=== PATIENT | female | born 1940 | race Caucasian/White ===

== ENCOUNTER 2017-07-21 15:43 | Observation (INO) ==
[2017-07-21] MEDS ORDERED: Aspirin 81 MG TAB.CHEW PO ONE (15:59)
--- NOTE | 2017-07-21 16:02 | Emergency Department Note ---
Disposition Clinical Impression: Pneumonia Qualifiers: Pneumonia type: due to unspecified organism Laterality: bilateral Lung location : unspecified part of lung Qualified Code(s): J18.9 - Pneumonia, unspecified organism Disposition: Admitted As Inpatient Condition: Fair Referrals: Collin Flynn MD [Primary Care Provider] - Forms: ED Satisfaction Letter Time of Disposition: 18:40 General Adult HPI - General Chief complaint: ED Weakness Stated complaint: Weakness Time Seen by Provider: 07/21/17 15:52 Source: patient Mode of arrival: ambulatory Limitations: no limitations Nursing Notes Reviewed: Yes Vital Signs Reviewed: Yes - History of Present Illness HPI Narrative: 77-year-old who had an episode of chest pain lasting about an hour 2 weeks ago. For the 3 days following that episode she was very weak. She she improved but then 2-3 days ago she started feeling weak and not feeling well again. Has had some intermittent chest pain Pt Subjective Complaint: General weakness and chest pain Pain Scale: 0 - Related Data Home Medications Medication Instructions Recorded Confirmed Albuterol Sulfate [Proair Hfa] 2 puff IH Q4H PRN 05/03/17 05/03/17 Aspirin [Lo-Dose Aspirin EC] 81 mg PO DAILY 05/03/17 05/03/17 Atorvastatin [Lipitor] 10 mg PO HS 05/03/17 05/03/17 Clomipramine HCl 100 mg PO HS 05/03/17 05/03/17 Glimepiride [Amaryl] 4 mg PO QAM 05/03/17 05/03/17 Metformin HCl [Glucophage] 1,000 mg PO BID 05/03/17 05/03/17 Metoprolol XL (24 HR) Succ [Toprol 50 mg PO DAILY 05/03/17 05/03/17 Xl] clonazePAM [Klonopin] 1 mg PO BID PRN 05/03/17 05/03/17 Previous Rx's Medication Instructions Recorded Phenazopyridine [Pyridium] 100 mg PO TID #6 tablet 05/03/17 Allergies Allergy/AdvReac Type Severity Reaction Status Date / Time Penicillins Allergy Hives Verified 12/12/16 15:44 All systems ED: reviewed and negative except as stated. Constitutional: Denies: fever, chills, weakness, weight change Eyes: Denies: eye pain, eye discharge, vision change ENT ED: Denies: ear pain, throat pain, dental pain, hearing loss, epistaxis, congestion, dysphagia Cardiovascular: Reports: chest pain. Denies: palpitations, dyspnea on exertion , edema, syncope Respiratory: Denies: cough, dyspnea, wheezes, hemoptysis, stridor Gastrointestinal: Reports: abdominal pain. Denies: nausea, vomiting, diarrhea, constipation, hematemesis, melena, hematochezia Genitourinary: Denies: dysuria, frequency, hematuria, discharge Musculoskeletal: Denies: back pain, neck pain, arthralgia, myalgia Integumentary: Denies: rash, abrasion, lesions Neurological: Denies: headache, weakness, numbness, paresthesias, confusion, abnormal gait, vertigo Psychiatric: Denies: anxiety, depression, suicidal thoughts, homicidal thoughts , auditory hallucinations, visual hallucinations Endocrine: Denies: fatigue Hematological/Lymphatic: Denies: easy bleeding, easy bruising Allergic/Immunologic: Denies: facial swelling, urticaria Past Medical History - Past Medical History Medical history: Reports: asthma, coronary artery disease, diabetes, hyperlipidemia, hypertension Surgical history: Reports: appendectomy, breast surgery, cholecystectomy Psychiatric history: Reports: anxiety 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 - Social History Smoking Status: Never smoker Smokeless Tobacco Status: No Alcohol use: Reports: none Drug use: Reports: none Physical Exam - General Limitations: no limitations General appearance: alert, in no apparent distress - Head Head exam: atraumatic, normocephalic, normal inspection - Eye Eye exam: Present: normal appearance, PERRL, EOMI - ENT ENT exam: normal exam, normal oropharynx, mucous membranes moist - Neck Neck exam: Present: normal inspection, full ROM, trachea midline - Chest Chest inspection: Present: normal inspection, symmetric chest wall rise - Cardiovascular Cardiovascular exam: Present: regular rate, normal rhythm, normal heart sounds - Abdominal Exam Abdominal exam: Present: soft, Non-Tender. Absent: tenderness, distention, guarding, rebound, rigidity - Extremities Exam Extremities exam: Present: normal inspection, full ROM. Absent: tenderness, pedal edema - Expanded Lower Extremity Exam Neurovascular/Tendon exam: Absent: motor deficit, sensory deficit, tendon deficit Gait: observed and normal - Back Exam Back exam: Present: normal inspection, full ROM. Absent: tenderness - Neurological Exam Neurological exam: Present: alert, oriented X3 - Psychiatric Psychiatric exam: Present: normal affect, normal mood - Skin Skin exam: Present: warm, dry, intact, normal color Course - Reevaluation(s) Reevaluation #1: 77-year-old comes in with cough not feeling well for the last couple of days hurting in her chest. Workup included a negative d-dimer negative troponin EKG showed no acute changes chest x-ray shows a right upper lobe left lower lobe pneumonia. Patient was given IV Levaquin will be admitted. Time: 18:39 - Consultations Consultation #1: Discussed with Dr. Aiden harris. Time: 18:40 Vital Signs Temperature 97.5 F L 07/21/17 15:44 Pulse Rate 88 07/21/17 15:44 Respiratory Rate 16 07/21/17 15:44 Blood Pressure 119/59 07/21/17 15:44 O2 Sat by Pulse Oximetry 96 07/21/17 15:44 Temperature 97.5 F L 07/21/17 15:44 Pulse Rate 92 07/21/17 17:52 Respiratory Rate 18 07/21/17 17:52 Blood Pressure 145/71 07/21/17 17:52 O2 Sat by Pulse Oximetry 93 07/21/17 17:52 Oxygen Delivery Oxygen Delivery Room Air Medical Decision Making - Lab Data Lab results reviewed: Yes I reviewed the patient's lab results. Result diagrams: 07/21/17 16:20 07/21/17 16:20 Lab Results 07/21/17 07/21/17 07/21/17 Range/Units 16:20 16:20 16:20 WBC 10.3 (4.3-11.1) K/mcL RBC 4.63 (3.82-4.97) M/mcL Hgb 12.7 (11.5-15.4) g/dL Hct 40.1 (35.3-44.9) % MCV 86.6 (83.0-100.0) fL MCH 27.4 L (28.0-33.3) pg MCHC 31.7 (31.6-35.5) g/dL RDW 13.8 (11.5-14.5) % Plt Count 339 (140-400) K/mcL MPV 8.8 L (9.4-12.4) fL Immature Gran % 0.4 (0-4) % Seg Neutrophils % 79.3 % Lymphocytes % 14.2 % Monocytes % 5.6 % Eosinophils % 0.2 % Basophils % 0.3 % Neutrophils # 8.1 (1.6-8.9) K/mcL Lymphocytes # 1.5 (0.6-4.6) K/mcL Monocytes # 0.6 (0.0-1.3) K/mcL Eosinophils # 0.0 (0.0-0.6) K/mcL Basophils # 0.0 (0.0-0.2) K/mcL PT 11.5 (9.4-12.1) Seconds INR 1.1 APTT 32.7 (26.0-36.0) Seconds D-Dimer 298 (0-500) ng/mLFEU Sodium 138 (136-145) mEq/L Potassium 4.8 H (3.5-4.5) mEq/L Chloride 104 (98-109) mEq/L Carbon Dioxide 23 (19-29) mEq/L BUN 17 (7-20) mg/dL Creatinine 0.76 (0.57-1.11) mg/dL Est GFR ( Amer) > 60 (> 60) Est GFR (Non-Af Amer) > 60 (> 60) BUN/Creatinine Ratio 22 (6-26) Glucose 142 H (70-99) mg/dL Calculated Osmolality 290 (280-300) Calcium 9.0 (8.6-10.8) mg/dL Troponin I (0-0.03) ng/mL Urine Color (Yellow) Urine Clarity (Clear) Urine pH (5.0-8.0) pH Units Ur Specific [place] (1.010-1.025) Urine Protein (Neg-Trace) mg/dL Urine Glucose (UA) (Normal) mg/dL Urine Ketones (Negative) mg/dL Urine Blood (Negative) Urine Nitrite (Negative) Urine Bilirubin (Negative) Urine Urobilinogen (Normal) mg/dL Ur Leukocyte Esterase (Negative) Ur Culture Indicated? (NO) 07/21/17 07/21/17 Range/Units 16:20 17:57 WBC (4.3-11.1) K/mcL RBC (3.82-4.97) M/mcL Hgb (11.5-15.4) g/dL Hct (35.3-44.9) % MCV (83.0-100.0) fL MCH (28.0-33.3) pg MCHC (31.6-35.5) g/dL RDW (11.5-14.5) % Plt Count (140-400) K/mcL MPV (9.4-12.4) fL Immature Gran % (0-4) % Seg Neutrophils % % Lymphocytes % % Monocytes % % Eosinophils % % Basophils % % Neutrophils # (1.6-8.9) K/mcL Lymphocytes # (0.6-4.6) K/mcL Monocytes # (0.0-1.3) K/mcL Eosinophils # (0.0-0.6) K/mcL Basophils # (0.0-0.2) K/mcL PT (9.4-12.1) Seconds INR APTT (26.0-36.0) Seconds D-Dimer (0-500) ng/mLFEU Sodium (136-145) mEq/L Potassium (3.5-4.5) mEq/L Chloride (98-109) mEq/L Carbon Dioxide (19-29) mEq/L BUN (7-20) mg/dL Creatinine (0.57-1.11) mg/dL Est GFR ( Amer) (> 60) Est GFR (Non-Af Amer) (> 60) BUN/Creatinine Ratio (6-26) Glucose (70-99) mg/dL Calculated Osmolality (280-300) Calcium (8.6-10.8) mg/dL Troponin I 0.00 (0-0.03) ng/mL Urine Color Yellow (Yellow) Urine Clarity Clear (Clear) Urine pH 5.5 (5.0-8.0) pH Units Ur Specific [place] 1.029 H (1.010-1.025) Urine Protein Negative (Neg-Trace) mg/dL Urine Glucose (UA) Normal (Normal) mg/dL Urine Ketones Trace H (Negative) mg/dL Urine Blood Negative (Negative) Urine Nitrite Negative (Negative) Urine Bilirubin Negative (Negative) Urine Urobilinogen Normal (Normal) mg/dL Ur Leukocyte Esterase Negative (Negative) Ur Culture Indicated? NO (NO) - Radiology Data Radiology results reviewed: Yes I reviewed the patient's radiology results. Chest X-Ray 07/21/17 15:59 IMPRESSION: 1. Right upper and left lower lobe opacities are suspicious for pneumonia. D/ / 07/21/2017 16:58:16 Isai Diaz MD / jayson Interpreting Provider: Isai Diaz MD - EKG Data EKG #1 EKG attestation: Yes I reviewed and interpreted this EKG. EKG shows normal: sinus rhythm Rate: normal Rhythm: NSR [place]/QRS: RBBB When compared to previous EKG there are: no significant changes (05/11/2016) Interpretation: no acute changes
[2017-07-21 16:31] LABS: Basophils % 0.3 %; Eosinophils % 0.2 %; Hematocrit 40.1 % (35.3-44.9); Hemoglobin 12.7 g/dL (11.5-15.4); Immature Granulocytes % 0.4 % (0-4); Lymphocytes # 1.5 K/mcL (0.6-4.6); Lymphocytes % 14.2 %; Mean Corpuscular HGB Conc 31.7 g/dL (31.6-35.5); Mean Corpuscular Hemoglobin 27.4 pg (28.0-33.3); Mean Corpuscular Volume 86.6 fL (83.0-100.0); Mean Platelet Volume 8.8 fL (9.4-12.4); Monocytes # 0.6 K/mcL (0.0-1.3); Monocytes % 5.6 %; Neutrophils # 8.1 K/mcL (1.6-8.9); Platelet Count 339 K/mcL (140-400); Red Blood Count 4.63 M/mcL (3.82-4.97); Red Cell Distribution Width 13.8 % (11.5-14.5); Segmented Neutrophils % 79.3 %
[2017-07-21 16:38] LABS: INR 1.1; Prothrombin Time 11.5 Seconds (9.4-12.1)
[2017-07-21 16:41] LABS: Activated Partial Thrombo Time 32.7 Seconds (26.0-36.0)
[2017-07-21 16:43] LABS: BUN/Creatinine Ratio 22 (6-26); Blood Urea Nitrogen 17 mg/dL (7-20); Carbon Dioxide 23 mEq/L (19-29); Chloride 104 mEq/L (98-109); Glucose 142 mg/dL (70-99); Osmolality,Calculated 290 (280-300); Potassium 4.8 mEq/L (3.5-4.5); Sodium 138 mEq/L (136-145); eGFR For African Americans > 60 (> 60); eGFR For Non-African Americans > 60 (> 60)
[2017-07-21 18:14] LABS: Bilirubin,Urine Negative (Negative); Blood,Urine Negative (Negative); Clarity,Urine Clear (Clear); Color,Urine Yellow (Yellow); Glucose,Urine (UA) Normal (Normal); Ketones,Urine Trace mg/dL (Negative); Leukocyte Esterase,Urine Negative (Negative); Nitrite,Urine Negative (Negative); PH,Urine 5.5 pH Units (5.0-8.0); Protein,Urine Negative (Neg-Trace); Specific Gravity,Urine 1.029 (1.010-1.025); Urobilinogen,Urine Normal (Normal)
[2017-07-21] MEDS ORDERED: Levofloxacin 750 MG/150 ML 750 MG/150 ML BAG IVPB ONE (18:20)
[2017-07-21] MEDS ORDERED: Naloxone 0.4 MG/ML INJ IVP PRN (20:12)
[2017-07-21] MEDS ORDERED: D5% in Water 1,000 ML IVC PRN (20:12)
[2017-07-21] MEDS ORDERED: Dextrose Gel 15 GM PO PRN ×2 (20:12)
[2017-07-21] MEDS ORDERED: *HR* Dextrose 50 % in Water (Syg) 50 ML SYRINGE IVP PRN (20:12)
[2017-07-21] MEDS ORDERED: *HR* Morphine 2 MG/ML SYRINGE IVP PRN (20:51)
[2017-07-21] MEDS ORDERED: Acetaminophen 325 MG TABLET PO PRN (20:51)
--- NOTE | 2017-07-21 21:28 | Internal Med History&Physical ---
Date of Encounter: 07/21/17 Time of Encounter: 20:00 Assessment and Plan (1) Pneumonia Current visit: Yes Status: Acute 1. Blood cultures drawn. 2. Continue Levaquin IV and convert to oral regimen soon. 3. Clinically stable with no oxygen requirement, normal perfusion, and no evidence of sepsis. 4. Supportive measures as needed. Qualifiers: Pneumonia type: due to unspecified organism Laterality: right Lung location: unspecified part of lung Qualified Code(s): J18.9 - Pneumonia, unspecified organism (2) Chest pain Current visit: Yes Status: Resolved 1. Patient gives history of CAD but she has never had work-up or been hospitalized for it. 2. Will cycle troponins and order ECHO. 3. Likely outpatient stress test or invasive work-up once pneumonia resolves. 4. Continue aspirin and STATIN. 5. Currently chest pain free. Qualifiers: Chest pain type: precordial pain Qualified Code(s): R07.2 - Precordial pain (3) Lactic acidosis Current visit: Yes Status: Acute 1. Likely due to Metformin in the setting of pneumonia. 2. Will repeat Lactate level with AM labs. 3. Will hydrate with IVF and hold Metformin. (4) Type 2 diabetes mellitus Current visit: Yes Status: Chronic 1. Hold oral meds. 2. Will use SSI for now and adjust as needed. 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 Heparin SQ. Internal Medicine - H&P: HPI Chief complaint: inder pain Admitted From: Emergency Dept Plans for Post Hospital Care: Home History of present illness: Ms. Plascencia is a 77 year old female who presents with a 2 week history of left- sided chest pain. Chest pain eventually resolved within 24-48 hours. However, since then, she has had fatigue, weakness, decreased appetite, and little motivation to care for herself or her . She therefore came to the ER. Workup in the ER was negative, but she was found to have evidence of right upper lobe pneumonia. She had no fever, leukocytosis, tachycardia, or hypoxemia. Nonetheless, she was admitted to the hospitalist service for further workup and care. Of note, ER did check a lactate level,which was slightly elevated. I suspect this is due to her metformin as she has no clinical evidence of sepsis. Presently, she has no chest pain. She has no shortness of breath. She feels "fine". She does admit to having had a dry cough for the last several days. She denies any pleurisy, productive sputum, change in color of sputum, or any shortness of breath. Past Med Surg Social Fam HX - Past Medical History Attestation: Yes The following information was validated with the patient. Source: patient, old records reviewed Medical history: asthma, coronary artery disease (she never sought medical attention for chest pain before-- she suspects she has had DC in past but she never went to hospital), diabetes, hyperlipidemia, hypertension Psychiatric history: anxiety - Past Surgical History Surgical History: appendectomy, breast surgery, cholecystectomy - Social History Smoking Status: Never smoker Smokeless Tobacco Status: No Alcohol use: none Drug use: none Current living situation: Home, With Family Activity Level: Independent ambulation Recent Out of Country Travel Within the Last 8 Weeks: No - Family History Father Living Status: Hx Family Cardiac Disorders: Yes Internal Medicine - H&P: Meds Albuterol Sulfate [Proair Hfa] 2 puff IH Q4H PRN 05/03/17 [History] Aspirin [Lo-Dose Aspirin EC] 81 mg PO DAILY 05/03/17 [History] Atorvastatin [Lipitor] 10 mg PO HS 05/03/17 [History] Clomipramine HCl 50 mg PO HS 05/03/17 [History] Glimepiride [Amaryl] 4 mg PO QAM 05/03/17 [History] Metformin HCl [Glucophage] 1,000 mg PO BID 05/03/17 [History] Metoprolol XL (24 HR) Succ [Toprol Xl] 50 mg PO DAILY 05/03/17 [History] clonazePAM [Klonopin] 1 mg PO BID PRN 05/03/17 [History] 3 Allergy/AdvReac Type Severity Reaction Status Date / Time Penicillins Allergy Hives Verified 12/12/16 15:44 - Constitutional Constitutional: fatigue, malaise, no chills, no fever(s), no night sweats - EENT Eyes: no blurry vision, no change in vision Ears: no ear pain, no tinnitus Nose, mouth and throat: no nasal congestion, no sinus pressure, no sore throat - Cardiovascular Cardiovascular ROS IM: chest pain (2 weeks ago), no dyspnea, no dyspnea on exertion, no edema, no lightheadedness, no orthopnea, no palpitations, no paroxysmal nocturnal dyspnea, no syncope - Respiratory Respiratory: cough (dry), no dyspnea, no hemoptysis, no dyspnea on exertion, no wheezing, no pain on inspiration, no chest congestion, no excessive phlegm production, no change in phlegm color, no pain with cough - Gastrointestinal Gastrointestinal: no abdominal pain, no diarrhea, no hematemesis, no hematochezia, no melena, no nausea, no vomiting - Genitourinary Genitourinary: no dysuria, no flank pain, no hematuria - Musculoskeletal Musculoskeletal ROS IM: no arthralgias, no back pain - Integumentary Integumentary IM: no rash, no jaundice - Neurological Neurological ROS: no dizziness, no focal weakness, no frequent falls, no headache(s) - Psychiatric Psychiatric: no anxiety, no depression - Endocrine Endocrine IM: no polydipsia, no polyuria - Hematologic/Lymphatic Hematologic/Lymphatic: no easy bruising, no lymphadenopathy - Allergic/Immunologic Allergic/Immunologic: no wheezing, no GI upset with certain foods - Constitutional Vitals: Temp Pulse Resp BP Pulse Ox 98.3 F 92 16 152/81 93 07/21/17 19:34 07/21/17 19:34 07/21/17 19:34 07/21/17 19:34 07/21/17 19:34 General appearance: Present: cooperative, A&O X 3, pleasant, no acute distress, answers questions appropriately - Head Head exam: Present: atraumatic, normal inspection - Eye Eye exam: Present: EOMI, normal appearance, PERRL. Absent: scleral icterus Pupils: Present: normal accommodation - ENT ENT exam: Present: mucous membranes moist, normal exam - Neck Neck exam general surgery: Present: full ROM, supple. Absent: lymphadenopathy, tenderness - Respiratory Respiratory exam: Present: CTAB (no appreciable crackles noted on exam). Absent : chest wall tenderness, rales, respiratory distress, rhonchi, wheezes, tachypnea - Cardiovascular Cardiovascular exam: Present: RRR, +S1, +S2. Absent: diastolic murmur, systolic murmur - GI/Abdominal GI/Abdominal exam: Present: normal bowel sounds, soft. Absent: guarding, hepatomegaly, mass, rebound, splenomegaly, tenderness - Extremities Exam Extremities exam: Present: full ROM, warm, radial pulses palpable and symmetrical. Absent: calf tenderness, joint swelling, pedal edema - Back Exam Back exam: Absent: CVA tenderness (L), CVA tenderness (R) - Neurological Exam Neurological exam: Present: alert, CN II-XII intact, oriented X3, no focal deficits, strengths equal and symetr throughout - Psychiatric Psychiatric exam: Present: normal affect, normal mood - Skin Skin exam: Present: dry, warm. Absent: rash Internal Med - H&P Results - Labs CBC & Chem 7: 07/21/17 16:20 07/21/17 16:20 - EKG Data -: EKG Interpreted by Myself - EKG Data Prior EKG available for review: yes When compared to previous EKG: there is no significant change EKG comments: 07/21/17 21:54 NSR; RBBB; no acute changes - Diagnostic Studies Chest x-ray Status: image reviewed by me (RUL infiltrate)
[2017-07-21 22:18] LABS: Hemoglobin A1C 5.4 %
[2017-07-21] MEDS: clonazePAM 1 MG TABLET PO PRN (22:30)
[2017-07-21] MEDS: 0.9 % Sodium Chloride 1,000 ML IVC SCH (22:30)
[2017-07-21] MEDS: *HR* Heparin 5,000 UNIT/ML VIAL SQ SCH (22:31)
[2017-07-22 05:20] LABS: Basophils % 0.3 %; Eosinophils % 0.3 %; Hematocrit 39.6 % (35.3-44.9); Hemoglobin 12.6 g/dL (11.5-15.4); Immature Granulocytes % 0.4 % (0-4); Lymphocytes # 2.5 K/mcL (0.6-4.6); Lymphocytes % 22.6 %; Mean Corpuscular HGB Conc 31.8 g/dL (31.6-35.5); Mean Corpuscular Hemoglobin 27.7 pg (28.0-33.3); Monocytes # 0.6 K/mcL (0.0-1.3); Monocytes % 5.5 %; Neutrophils # 7.7 K/mcL (1.6-8.9); Platelet Count 335 K/mcL (140-400); Red Blood Count 4.55 M/mcL (3.82-4.97); Red Cell Distribution Width 13.7 % (11.5-14.5); Segmented Neutrophils % 70.9 %
[2017-07-22 05:31] LABS: Alanine Aminotransferase 12 Units/L (0-55); Albumin 3.5 g/dL (3.5-5.0); Albumin/Globulin Ratio 0.9 (1.1-2.2); Alkaline Phosphatase 64 Units/L (38-126); Aspartate Amino Transferase 14 Units/L (5-34); BUN/Creatinine Ratio 19 (6-26); Bilirubin,Total 0.3 mg/dL (0.2-1.2); Blood Urea Nitrogen 14 mg/dL (7-20); Calcium 8.9 mg/dL (8.6-10.8); Carbon Dioxide 26 mEq/L (19-29); Chloride 105 mEq/L (98-109); Chol/HDL Ratio 3.4 (0-4.9); Cholesterol 131 mg/dL (< 200); Globulin 3.9 g/dL (2.4-3.5); Glucose 81 mg/dL (70-99); HDL Cholesterol 38 mg/dL (40-59); LDL Cholesterol,Calculated 50 mg/dL (0-99); Magnesium 1.5 mg/dL (1.6-2.6); Osmolality,Calculated 294 (280-300); Potassium 4.5 mEq/L (3.5-4.5); Sodium 142 mEq/L (136-145); Total Protein 7.4 g/dL (6.0-8.3); Triglycerides 213 mg/dL (< 150); eGFR For African Americans > 60 (> 60); eGFR For Non-African Americans > 60 (> 60)
[2017-07-22] MEDS: *HR* Heparin 5,000 UNIT/ML VIAL SQ SCH ×2 (05:39→20:13)
[2017-07-22] MEDS: Insulin LISPRO 300 UNITS/3 ML VIAL SQ SCH ×3 (08:11→18:25)
[2017-07-22] MEDS ORDERED: 0.9 % Sodium Chloride 1,000 ML IVC ONE (08:15)
[2017-07-22] MEDS: Aspirin Enteric Coated 81 MG Tablet PO SCH (09:00)
[2017-07-22] MEDS: Metoprolol XL (24 HR) Succ 50 MG TAB.ER.24H PO SCH (09:00)
[2017-07-22] MEDS: clonazePAM 1 MG TABLET PO PRN ×2 (09:08→22:51)
[2017-07-22] MEDS: 0.9 % Sodium Chloride 1,000 ML IVC SCH ×2 (09:08→18:28)
--- NOTE | 2017-07-22 15:15 | Internal Med Progress Note ---
Date of Encounter: 07/22/17 Time of Encounter: 15:13 - Assessment and plan (1) CAD (coronary artery disease) Current Visit: Yes Status: Acute Assessment and plan: Sandhya Plascencia is a 77-year-old female with past medical history CAD, diabetes and hypertension who presented to [facility] on 07/21/2017 with complaints of general weakness and fatigue. She was found to have pneumonia and was placed in observation status for IV ATB. 1. Community acquired pneumonia: Presented with general weakness and fatigue. CXR with bilateral upper lobe opacities concerning for pneumonia. WBC 10K, afebrile. Does not appear acute or toxic. Continue IV Levaquin started on arrival. Urinary antigens and respiratory PCR pending. De-escalate ATVs is clinically improves and/or cultures finalized 2. Elevated lactic acid: Lactic acid peaked at 2.8. In the setting of pneumonia however does not appear to be sepsis. Possibly secondary to dehydration, diabetes with metformin use. Lactic acid normalized with IV fluids. 3. CAD: per with remote [place]. Patient reports episode of severe chest pain approximately 3 weeks prior to admission. Troponin negative, EKG without acute ST changes. Patient is declining cardiac workup inpatient. States she is afraid to have stress test. She follows with Dr. Hawkins and would like to follow up outpatient. Continue home ASA, BB, statin. 4. Diabetes: per hx. Hgb A1c 5.4%. Holding home oral hypoglycemics. SSI. Monitor blood sugar and titrate PRN 5. Hypertension: per hx. BP variable but acceptable. Continue home BP medication. Monitor BP and titrate PRN 6. DVT prophylaxis: Heparin Qualifiers: Coronary Disease-Associated Artery/Lesion type: alutiiq artery [place] vs. transplanted heart: al[place]q heart Associated angina: without angina Qualified Code(s): I25.10 - Atherosclerotic heart disease of al[place]iiq coronary artery without angina pectoris (2) Pneumonia Current Visit: Yes Status: Acute Qualifiers: Pneumonia type: due to unspecified organism Laterality: right Lung location: unspecified part of lung Qualified Code(s): J18.9 - Pneumonia, unspecified organism (3) Lactic acidosis Current Visit: Yes Status: Acute (4) DVT prophylaxis Current Visit: Yes Status: Acute (5) Type 2 diabetes mellitus Current Visit: Yes Status: Chronic Qualifiers: Diabetes mellitus complication status: without complication Diabetes mellitus fpc insulin use: without fpc use Qualified Code(s): E11.9 - Type 2 diabetes mellitus without complications - Subjective Interval history: Seen and examined at bedside. Patient is new to me. Information obtained from chart review and patient report. Patient says she is feeling much better today. Has a dry nonproductive cough, no shortness of breath or chest pain. She does report an episode of acute chest pain approximately 3 weeks ago when she thought she was having a heart attack. Discussed inpatient stress testing and patient states she is fighting to have another stress test and wishes to follow up outpatient. - Constitutional Vitals: Temp Pulse Resp BP Pulse Ox 97.8 F 91 16 126/69 91 07/22/17 12:00 07/22/17 12:00 07/22/17 12:00 07/22/17 12:00 07/22/17 12:00 General appearance: Present: cooperative, A&O X 3, pleasant, no acute distress, answers questions appropriately - Head Head exam: Present: atraumatic, normocephalic - Eye Eye exam: Present: PERRL, conjuntiva pink, sclera anicteric Pupils: Present: PERRL - Neck Neck exam general surgery: Present: supple, trachea midline. Absent: lymphadenopathy - Respiratory Respiratory exam: Present: CTAB. Absent: accessory muscle use, rales, rhonchi, wheezes - Cardiovascular Cardiovascular exam: Present: RRR, +S1, +S2. Absent: diastolic murmur, gallop, rubs, systolic murmur - GI/Abdominal GI/Abdominal exam: Present: normal bowel sounds, soft, no peritoneal signs. Absent: distended, tenderness - Extremities Exam Extremities exam: Present: warm, radial pulses palpable and symmetrical. Absent : calf tenderness, cyanotic, pedal edema - Neurological Exam Neurological exam: Present: CN II-XII intact, oriented X3, no focal deficits. Absent: pronater drift, facial droop, speech deficit - Skin Skin exam: Present: dry, intact Internal Medicine: Result - Labs CBC & Chem 7: 07/22/17 04:46 07/22/17 04:46 Labs: Short CBC 07/22/17 Range/Units 04:46 WBC 10.9 (4.3-11.1) K/mcL Hgb 12.6 (11.5-15.4) g/dL Hct 39.6 (35.3-44.9) % Plt Count 335 (140-400) K/mcL Neutrophils # 7.7 (1.6-8.9) K/mcL BMP 07/22/17 04:46 Sodium 142 Potassium 4.5 Chloride 105 Carbon Dioxide 26 BUN 14 Creatinine 0.75 Glucose 81 Calcium 8.9 Cardiac Enzymes 07/21/17 07/22/17 Range/Units 21:38 04:46 Troponin I 0.00 0.00 (0-0.03) ng/mL Liver Function 07/22/17 Range/Units 04:46 Total Bilirubin 0.3 (0.2-1.2) mg/dL AST 14 (5-34) Units/L ALT 12 (0-55) Units/L Alkaline Phosphatase 64 (38-126) Units/L Albumin 3.5 (3.5-5.0) g/dL - ABG Interpretation ABG results: PT/INR, D-dimer PT 11.5 Seconds (9.4-12.1) 07/21/17 16:20 D-Dimer 298 ng/mLFEU (0-500) 07/21/17 16:20 - Impressions Impressions Echocardiogram 07/22/17 20:51 Impressions: LVEF 60%. Not all LV segments were well visualized. Indeterminate diastolic function. Normal right ventricular structure and function. Mild aortic regurgitation. No pulmonary hypertension. Left Ventricular Wall Motion: Rest Echo Findings The mid inferior lateral and basal inferior lateral francis were not visualized. All other wall segments showed normal motion. Findings: Study Quality * Technically adequate exam. ECG Findings * Sinus rhythm with BBB. Left Ventricle * Indeterminate diastolic function. * LVEF 60%. * Normal LV size and wall thickness. Right Ventricle * Normal right ventricular structure and function. Left Atrium * Normal left atrial size. Right Atrium * Normal right atrial size. Aortic Valve * Trileaflet aortic valve. * Normal aortic valve structure. * No aortic stenosis. * Mild aortic regurgitation. Mitral Valve * Normal mitral valve structure. * No mitral stenosis. * No mitral regurgitation. * Mild mitral annular calcification Tricuspid Valve * Tricuspid valve not well visualized. * No tricuspid regurgitation. * Estimated RA pressure is 3 mmHg. * No pulmonary hypertension. Pulmonic Valve * Pulmonic valve is not well visualized. * No pulmonic stenosis. * No pulmonic regurgitation. Pulmonary Artery * Pulmonary artery not well visualized. Aorta * Normally sized aortic root. Pericardium * There is no pericardial effusion present. Interatrial Septum * No evidence of PFO by color Doppler. IVC * Normal IVC dimensions and inspiratory collapse. Consult Discharge Plan - Plan Referrals: Collin Flynn MD [Primary Care Provider] - 07/29/17 3:45 pm
[2017-07-22 16:57] LABS: Adenovirus Not Detected (Not Detect); Coronavirus 229E Not Detected (Not Detect); Coronavirus HKU1 Not Detected (Not Detect); Coronavirus NL63 Not Detected (Not Detect); Coronavirus OC43 Not Detected (Not Detect); Human Metapneumovirus Not Detected (Not Detect); Human Rhinovirus/Enterovirus Not Detected (Not Detect); Influenza A Subtype 2009 H1 Not Detected (Not Detect); Influenza A Untypeable Not Detected (Not Detect); Influenza B Not Detected (Not Detect); Parainfluenza Virus 1 Not Detected (Not Detect)
[2017-07-22 16:58] LABS: Bordetella Pertussis Not Detected (Not Detect); Chlamydophila pneumoniae Not Detected (Not Detect); Mycoplasma pneumoniae Not Detected (Not Detect); Parainfluenza Virus 2 Not Detected (Not Detect); Parainfluenza Virus 3 Not Detected (Not Detect); Parainfluenza Virus 4 Not Detected (Not Detect); Respiratory Syncytial Virus Not Detected (Not Detect)
[2017-07-22] MEDS: Levofloxacin 750 MG/150 ML 750 MG/150 ML BAG IVPB SCH (18:25)
[2017-07-23 04:00] LABS: Hematocrit 36.6 % (35.3-44.9); Hemoglobin 11.9 g/dL (11.5-15.4); Mean Corpuscular HGB Conc 32.5 g/dL (31.6-35.5); Mean Corpuscular Hemoglobin 27.5 pg (28.0-33.3); Mean Corpuscular Volume 84.5 fL (83.0-100.0); Platelet Count 280 K/mcL (140-400); Red Blood Count 4.33 M/mcL (3.82-4.97); Red Cell Distribution Width 13.6 % (11.5-14.5)
[2017-07-23 04:15] LABS: Alanine Aminotransferase 9 Units/L (0-55); Albumin/Globulin Ratio 0.8 (1.1-2.2); Alkaline Phosphatase 56 Units/L (38-126); Aspartate Amino Transferase 12 Units/L (5-34); BUN/Creatinine Ratio 15 (6-26); Bilirubin,Total 0.3 mg/dL (0.2-1.2); Blood Urea Nitrogen 11 mg/dL (7-20); Calcium 8.4 mg/dL (8.6-10.8); Carbon Dioxide 23 mEq/L (19-29); Chloride 109 mEq/L (98-109); Globulin 3.6 g/dL (2.4-3.5); Glucose 90 mg/dL (70-99); Osmolality,Calculated 293 (280-300); Sodium 142 mEq/L (136-145); Total Protein 6.6 g/dL (6.0-8.3); eGFR For African Americans > 60 (> 60); eGFR For Non-African Americans > 60 (> 60)
[2017-07-23] MEDS: *HR* Heparin 5,000 UNIT/ML VIAL SQ SCH (05:13)
[2017-07-23 07:13] VITALS: BP 142/68
[2017-07-23] MEDS: Insulin LISPRO 300 UNITS/3 ML VIAL SQ SCH (08:10)
[2017-07-23] MEDS: Metoprolol XL (24 HR) Succ 50 MG TAB.ER.24H PO SCH (08:12)
[2017-07-23] MEDS: Aspirin Enteric Coated 81 MG Tablet PO SCH (08:12)
[2017-07-23] MEDS: clonazePAM 1 MG TABLET PO PRN (08:17)
[2017-07-23] MEDS: 0.9 % Sodium Chloride 1,000 ML IVC SCH (08:17)
--- NOTE | 2017-07-23 10:29 | Discharge Summary ---
Date of Encounter: 07/23/17 Time of Encounter: 10:17 - Discharge Diagnosis (1) CAD (coronary artery disease) Priority: Primary Status: Acute Comments: Sandhya Plascencia is a 77-year-old female with past medical history CAD, diabetes and hypertension who presented to [facility] on 07/21/2017 with complaints of general weakness and fatigue. She was found to have pneumonia and was placed in observation status for IV ATB. She was discharged home on 07/23/2017 in stable condition with outpatient follow-up 1. Community acquired pneumonia: Secondary to unspecified organism. Presented with general weakness and fatigue. CXR with bilateral upper lobe opacities concerning for pneumonia. WBC 10K, afebrile. Did not appear acute or toxic. Urinary antigens and respiratory PCR negative. Received 2 doses IV Levaquin, discharge home on oral Levaquin (to complete a total course of 7 days). Declined pneumonia and influenza vaccine. Recommend follow-up with PCP within 1- 2 weeks. 2. Elevated lactic acid: Lactic acid peaked at 2.8. In the setting of pneumonia however does not appear to be sepsis. Possibly secondary to dehydration, diabetes with metformin use. Lactic acid normalized with IV fluids. 3. CAD: per with remote [place]. Patient reports episode of severe chest pain approximately 3 weeks prior to presentation. Troponin negative, EKG without acute ST changes. 07/22/2017 TTE with EF 60%, mid inferior lateral and basal and paralateral was not visualized, all other wall segments with normal motion. No chest pain recurrence, patient declined inpatient cardiac workup. She follows with Dr. Hawkins and would like to follow up outpatient. Continue home ASA, BB, statin. 4. Diabetes: per hx. Hgb A1c 5.4%. Resume home diabetes regimen. Recommend follow-up with PCP within 1-2 weeks. 5. Hypertension: per hx. BP variable but acceptable. Continue home BP medication Qualifiers: Coronary Disease-Associated Artery/Lesion type: [place] artery [place] vs. transplanted heart: [place] heart Associated angina: without angina Qualified Code(s): I25.10 - Atherosclerotic heart disease of [place] coronary artery without angina pectoris (2) Pneumonia Priority: Primary Status: Acute Qualifiers: Pneumonia type: due to unspecified organism Laterality: bilateral Lung location: upper lobe of lung Qualified Code(s): J18.9 - Pneumonia, unspecified organism (3) Lactic acidosis Priority: Primary Status: Resolved (4) Type 2 diabetes mellitus Priority: Primary Status: Chronic Qualifiers: Diabetes mellitus complication status: without complication Diabetes mellitus prison insulin use: without 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 plant operator use Qualified Code(s): E11.9 - Type 2 diabetes mellitus without complications - Discharge Medications Home Medications: Albuterol Sulfate [Proair Hfa] 2 puff IH Q4H PRN 05/03/17 [History] Aspirin [Lo-Dose Aspirin EC] 81 mg PO DAILY 05/03/17 [History] Atorvastatin [Lipitor] 10 mg PO HS 05/03/17 [History] Clomipramine HCl 50 mg PO HS 05/03/17 [History] Glimepiride [Amaryl] 4 mg PO QAM 05/03/17 [History] Metformin HCl [Glucophage] 1,000 mg PO BID 05/03/17 [History] Metoprolol XL (24 HR) Succ [Toprol Xl] 50 mg PO DAILY 05/03/17 [History] clonazePAM [Klonopin] 1 mg PO BID PRN 05/03/17 [History] Allergies/Adverse Reactions: 3 Allergy/AdvReac Type Severity Reaction Status Date / Time Penicillins Allergy Hives Verified 12/12/16 15:44 Procedures/tests Complete & Pending: Procedures Performed prior 72 hours Category Date Time Status ECG 12 lead ECG [ECG] AM 0600 Y 07/22/17 06:00 Ordered EV echocardiogram Routine Y 07/22/17 20:51 Completed Date of admission: 07/21/17 18:59 Primary care physician: Collin Flynn MD Discharging clinician: Solange Cruz Anticipated date of discharge: 07/23/17 - Patient Status Disposition: Home, Self-Care Condition: Good Functional capacity at discharge: independent ambulation Overall status at discharge: patient is back to baseline - Discharge Instructions Instructions: Community-acquired Pneumonia (DC), Levofloxacin (By mouth), Pneumococcal Polysaccharide Vaccine (DC), Influenza Vaccine (GEN), Chest Pain ( DC) Follow Up With: Collin Flynn MD [Primary Care Provider] - 07/29/17 3:45 pm Additional Instructions: Follow Up Appointment 1. Please keep follow-up plan with her primary care physician 2. Please follow-up with her phlebotomist supervisor/instructor as scheduled - Diet and Activity Activity: increase activity as tolerated Diet: diabetic diet, low fat, low cholesterol Interval History: Seen and examined at bedside. Patient says she feels much better and wants to go home today. She has no complaints, specifically denies fevers, no chills no chest pain or shortness of breath. She still declining further cardiac workup. She follows with Dr. Hawkins and would like to follow-up with her outpatient. She is also refusing the pneumonia and influenza vaccine. Hospital course: See assessment and plan for hospital course - Time Spent with Patient Total time spent providing and/or coordinating discharge services: - Constitutional Vitals: Temp Pulse Resp BP Pulse Ox 97.8 F 87 16 142/68 93 07/23/17 07:06 07/23/17 07:06 07/23/17 07:06 07/23/17 07:06 07/23/17 07:06 General appearance: Present: cooperative, A&O X 3, pleasant, no acute distress, answers questions appropriately - Head Head exam: Present: atraumatic, normocephalic - Eye Eye exam: Present: PERRL, conjuntiva pink, sclera anicteric Pupils: Present: PERRL - Neck Neck exam general surgery: Present: supple, trachea midline. Absent: lymphadenopathy - Respiratory Respiratory exam: Present: CTAB. Absent: accessory muscle use, rales, rhonchi, wheezes - Cardiovascular Cardiovascular exam: Present: RRR, +S1, +S2. Absent: diastolic murmur, gallop, rubs, systolic murmur - GI/Abdominal GI/Abdominal exam: Present: normal bowel sounds, soft, no peritoneal signs. Absent: distended, tenderness - Extremities Exam Extremities exam: Present: warm, radial pulses palpable and symmetrical. Absent : calf tenderness, cyanotic, pedal edema - Neurological Exam Neurological exam: Present: CN II-XII intact, oriented X3, no focal deficits. Absent: pronater drift, facial droop, speech deficit - Skin Skin exam: Present: dry, intact
[2017-07-23] MEDS: Levofloxacin 750 MG/150 ML 750 MG/150 ML BAG IVPB SCH (10:30)
--- NOTE | 2017-07-23 11:02 | Discharge Summary ---
Date of Encounter: 07/23/17 Time of Encounter: 11:00 - Discharge Diagnosis (1) Pneumonia Priority: Primary Status: Acute Comments: Sandhya Plascencia is a 77-year-old female with past medical history CAD, diabetes and hypertension who presented to [facility] on 07/21/2017 with complaints of general weakness and fatigue. She was found to have pneumonia and was placed in observation status for IV ATB. She was discharged home on 07/23/2017 in stable condition with outpatient follow-up 1. Community acquired pneumonia: Secondary to unspecified organism. Presented with general weakness and fatigue. CXR with bilateral upper lobe opacities concerning for pneumonia. WBC 10K, afebrile. Did not appear acute or toxic. Urinary antigens and respiratory PCR negative. Received 2 doses IV Levaquin, discharge home on oral Levaquin (to complete a total course of 7 days). Declined pneumonia and influenza vaccine. Recommend follow-up with PCP within 1- 2 weeks. 2. Elevated lactic acid: Lactic acid peaked at 2.8. In the setting of pneumonia however does not appear to be sepsis. Possibly secondary to dehydration, diabetes with metformin use. Lactic acid normalized with IV fluids. 3. CAD: per with remote [place]. Patient reports episode of severe chest pain approximately 3 weeks prior to presentation. Troponin negative, EKG without acute ST changes. 07/22/2017 TTE with EF 60%, mid inferior lateral and basal and paralateral was not visualized, all other wall segments with normal motion. No chest pain recurrence, patient declined inpatient cardiac workup. She follows with Dr. Hawkins and would like to follow up outpatient. Continue home ASA, BB, statin. 4. Diabetes: per hx. Hgb A1c 5.4%. Resume home diabetes regimen. Recommend follow-up with PCP within 1-2 weeks. 5. Hypertension: per hx. BP variable but acceptable. Continue home BP medication Qualifiers: Pneumonia type: due to unspecified organism Laterality: bilateral Lung location: upper lobe of lung Qualified Code(s): J18.9 - Pneumonia, unspecified organism (2) CAD (coronary artery disease) Priority: Primary Status: Acute Qualifiers: Coronary Disease-Associated Artery/Lesion type: [place] artery [place] vs. transplanted heart: [place] heart Associated angina: without angina Qualified Code(s): I25.10 - Atherosclerotic heart disease of [place] coronary artery without angina pectoris (3) Lactic acidosis Priority: Primary Status: Resolved (4) Type 2 diabetes mellitus Priority: Primary Status: Chronic Qualifiers: Diabetes mellitus complication status: without complication Diabetes mellitus penitentiary insulin use: without ad terminal makeup operator use Qualified Code(s): E11.9 - Type 2 diabetes mellitus without complications - Discharge Medications Prescriptions: levoFLOXacin [Levaquin] 750 mg PO ONCE #5 tablet Home Medications: Albuterol Sulfate [Proair Hfa] 2 puff IH Q4H PRN 05/03/17 [History] Aspirin [Lo-Dose Aspirin EC] 81 mg PO DAILY 05/03/17 [History] Atorvastatin [Lipitor] 10 mg PO HS 05/03/17 [History] Clomipramine HCl 50 mg PO HS 05/03/17 [History] Glimepiride [Amaryl] 4 mg PO QAM 05/03/17 [History] Metformin HCl [Glucophage] 1,000 mg PO BID 05/03/17 [History] Metoprolol XL (24 HR) Succ [Toprol Xl] 50 mg PO DAILY 05/03/17 [History] clonazePAM [Klonopin] 1 mg PO BID PRN 05/03/17 [History] levoFLOXacin [Levaquin] 750 mg PO ONCE #5 tablet 07/23/17 [Rx] Allergies/Adverse Reactions: 3 Allergy/AdvReac Type Severity Reaction Status Date / Time Penicillins Allergy Hives Verified 12/12/16 15:44 Procedures/tests Complete & Pending: Procedures Performed prior 72 hours Category Date Time Status ECG 12 lead ECG [ECG] AM 0600 Y 07/22/17 06:00 Ordered EV echocardiogram Routine Y 07/22/17 20:51 Completed Date of admission: 07/21/17 18:59 Primary care physician: Collin Flynn MD Discharging clinician: Solange Cruz Anticipated date of discharge: 07/23/17 - Patient Status Disposition: Home, Self-Care Condition: Good - Discharge Instructions Instructions: Levofloxacin (By mouth), Chest Pain (DC), Pneumococcal Polysaccharide Vaccine (DC), Influenza Vaccine (GEN), Community-acquired Pneumonia (DC) Follow Up With: [facility] [Provider Group] - 08/26/17 1:00 pm Collin Flynn MD [Primary Care Provider] - 07/29/17 3:45 pm Additional Instructions: Follow Up Appointment 1. Please keep follow-up plan with her primary care physician 2. Please follow-up with her client application support specialist as scheduled - Diet and Activity Activity: increase activity as tolerated Diet: diabetic diet, low fat, low cholesterol Interval History: Seen and examined at bedside. Patient says she feels much better and wants to go home today. She has no complaints, specifically denies fevers, no chills no chest pain or shortness of breath. She still declining further cardiac workup. She follows with Dr. Hawkins and would like to follow-up with her outpatient. She is also refusing the pneumonia and influenza vaccine. Hospital course: See assessment and plan for hospital course - Time Spent with Patient Total time spent providing and/or coordinating discharge services: - Constitutional Vitals: Temp Pulse Resp BP Pulse Ox 97.8 F 87 16 142/68 93 07/23/17 07:06 07/23/17 07:06 07/23/17 07:06 07/23/17 07:06 07/23/17 07:06 General appearance: Present: cooperative, A&O X 3, pleasant, no acute distress, answers questions appropriately - Head Head exam: Present: atraumatic, normocephalic - Eye Eye exam: Present: PERRL, conjuntiva pink, sclera anicteric Pupils: Present: PERRL - Neck Neck exam general surgery: Present: supple, trachea midline. Absent: lymphadenopathy - Respiratory Respiratory exam: Present: CTAB. Absent: accessory muscle use, rales, rhonchi, wheezes - Cardiovascular Cardiovascular exam: Present: RRR, +S1, +S2. Absent: diastolic murmur, gallop, rubs, systolic murmur - GI/Abdominal GI/Abdominal exam: Present: normal bowel sounds, soft, no peritoneal signs. Absent: distended, tenderness - Extremities Exam Extremities exam: Present: warm, radial pulses palpable and symmetrical. Absent : calf tenderness, cyanotic, pedal edema - Neurological Exam Neurological exam: Present: CN II-XII intact, oriented X3, no focal deficits. Absent: pronater drift, facial droop, speech deficit - Skin Skin exam: Present: dry, intact
--- NOTE | 2017-07-24 11:28 | Electrocardiograph Report ---
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
== END 2017-07-23 13:30 | disposition home or self-care (01) ==
LOC: EMEROO 15:43 → 3BNU 15:43
PROVIDERS: ADMIT Hospitalist; ATTEND Registered Nurse